=== PATIENT | male | born 1955 | race Caucasian/White ===

== ENCOUNTER 2024-01-19 07:50 | Emergency (ER) | payer OTHER ==
[2024-01-19] MEDS: Morphine 4 MG/ML Syringe IVPUSH ONE (07:57)
[2024-01-19] MEDS: Lactated Ringers 1,000 ML IV SCH (07:58)
[2024-01-19] MEDS: fentaNYL 100 MCG/2 ML SDV IVPUSH ONE ×4 (08:07→11:21)
[2024-01-19] MEDS: HYDROmorphone 2 MG/ML Syringe IVPUSH ONE (08:47)
[2024-01-19] MEDS: Diphtheria,Pertussis(Acell),Tetanus Vaccine 0.5 ML Syringe IM ONE (09:03)
[2024-01-19] MEDS: Naloxone 0.4 MG/ML SDV IVPUSH PRN (09:08)
[2024-01-19 09:11] LABS: BASOPHILS ABSOLUTE AUTO 0.07 K/uL (0.00-0.20); BASOPHILS PERCENT AUTO 0.4 % (0.0-1.0); EOSINOPHILS ABSOLUTE AUTO 0.09 K/uL (0.00-0.45); EOSINOPHILS PERCENT AUTO 0.6 % (0.0-6.0); HEMATOCRIT 42.5 % (42.0-52.0); HEMOGLOBIN 14.3 g/dL (14.0-18.0); IMMATURE GRAN ABSOLUTE AUTO 0.17 K/uL (0.00-0.05); IMMATURE GRAN PERCENT AUTO 1.1 % (0.0-0.4); LYMPHOCYTES ABSOLUTE AUTO 3.37 K/uL (1.00-4.80); LYMPHOCYTES PERCENT AUTO 21.1 % (24.0-44.0); MEAN CORPUSCULAR HEMOGLOBIN 33.1 pg (28.0-32.0); MEAN CORPUSCULAR HGB CONC 33.6 g/dL (32.0-36.0); MEAN CORPUSCULAR VOLUME 98.4 fL (83.0-99.0); MEAN PLATELET VOLUME 9.6 fL (9.4-12.4); MONOCYTES ABSOLUTE AUTO 1.24 K/uL (0.00-0.80); MONOCYTES PERCENT AUTO 7.8 % (0.0-8.0); NEUTROPHILS ABSOLUTE AUTO 11.04 K/uL (1.80-7.70); PLATELET COUNT,PLT 229 K/uL (150-400); RED BLOOD CELL COUNT 4.32 M/uL (4.52-5.90); WHITE BLOOD CELL COUNT,WBC 15.98 K/uL (3.9-11.3)
[2024-01-19] MEDS: Iopamidol 755 MG/ML 500 ML Multipack Bottle IVPUSH STA (09:17)
[2024-01-19] MEDS ORDERED: Naloxone 0.4 MG/ML SDV IVPUSH PRN (09:20)
[2024-01-19 09:39] LABS: INR 1.26 (0.86-1.11)
[2024-01-19 09:43] LABS: D-DIMER QUANTITATIVE > 35.20 mg/L FEU (0.00-0.50)
[2024-01-19 09:47] LABS: A/G RATIO 1.2 (0.9-1.6); ALANINE AMINOTRANSFERASE,ALT 74 IU/L (14-63); ALBUMIN 3.5 g/dL (3.4-5.0); ALKALINE PHOSPHATASE 70 U/L (46-116); ASPARTATE AMNIOTRANSFERASE,AST 145 IU/L (15-37); BILIRUBIN TOTAL 0.3 mg/dL (0.2-1.0); BLOOD UREA NITROGEN,BUN 15 mg/dL (7.0-18.0); CALCIUM 7.8 mg/dL (8.5-10.1); CARBON DIOXIDE,CO2 28.7 mmol/L (21.0-32.0); CHLORIDE,CL 94 mmol/L (98-107); ETHANOL BLOOD MEDICAL 91 mg/dL; GLUCOSE RANDOM 233 mg/dL (74-106); LIPASE 24 U/L (16-77); POTASSIUM,K 4.2 mmol/L (3.5-5.1); PROTEIN TOTAL,TP 6.5 g/dL (6.4-8.2); SODIUM,NA 129 mmol/L (136-148)
[2024-01-19] MEDS: HYDROmorphone 0.5 MG/0.5 ML Syringe IVPUSH ONE (09:58)
[2024-01-19 10:11] LABS: ESTIMATED GFR 83 mL/min (>60)
[2024-01-19] MEDS ORDERED: Ketamine 500 mg/10 ML MDV IV ONE (10:21)
[2024-01-19] MEDS: Etomidate 2 MG/ML 20 ML SDV IVPUSH ONE (10:24)
[2024-01-19] MEDS: Succinylcholine 200 MG/10 ML MDV IVPUSH ONE (10:26)
[2024-01-19] MEDS: fentaNYL/Normal Saline 2,500 MCG in Premix Bag 1 BAG IV PRN (10:35)
[2024-01-19] MEDS: Norepinephrine Bit/D5W Premix 250 ML IV SCH (10:40)
[2024-01-19] MEDS: Ketamine 500 MG in Sodium Chloride 0.9% 500 ML IV ONE (10:52)
[2024-01-19] MEDS: fentaNYL/Normal Saline 250 ML ONE (10:59)
[2024-01-19] MEDS: Norepinephrine Bit/D5W Premix 250 ML ONE (11:01)
[2024-01-19] MEDS: Lactated Ringers 500 ML IV ONE (11:02)
[2024-01-19] MEDS: Lactated Ringers 1,000 ML IV ONE ×2 (11:04→12:10)
[2024-01-19 11:07] LABS: BASE EXCESS ARTERIAL -9.7 (-2.0-3.0); BICARBONATE,ARTERIAL 21 mEq/L (22-26); PCO2 ARTERIAL 68 mmHG (35-45); PO2 ARTERIAL 66 mmHG (80-105)
[2024-01-19 11:10] LABS: APPEARANCE,URINE CLEAR; BILIRUBIN,URINE NEGATIVE (NEGATIVE); COLOR,URINE YELLOW; GLUCOSE,URINE NEGATIVE (NEGATIVE); KETONES,URINE NEGATIVE (NEGATIVE); LEUKOCYTE ESTERASE,URINE NEGATIVE (NEGATIVE); NITRITE,URINE NEGATIVE (NEGATIVE); OCCULT BLOOD,URINE LARGE (NEGATIVE); PH,URINE 5.5 (5.0-8.0); PROTEIN,URINE 30 mg/dL (NEGATIVE); UROBILINOGEN,URINE 0.2 EU/dL (<2.0)
[2024-01-19 11:19] LABS: BACTERIA,URINE FEW (NEGATIVE); EPITHELIAL CELLS,URINE FEW (NONE-FEW)
[2024-01-19 11:20] LABS: AMORPHOUS SEDIMENT,URINE LIGHT (NEGATIVE); AMPHETAMINES SCREEN, URINE NEGATIVE (CUTOFF=500); BARBITURATE SCREEN,URINE NEGATIVE (CUTOFF=200); BENZODIAZEPINES SCREEN,URINE NEGATIVE (CUTOFF=150); BUPRENORPHINE SCREEN,URINE NEGATIVE (CUTOFF=10); FINE GRANULAR CASTS,URINE 0-2 (NEGATIVE); METHADONE SCREEN, URINE NEGATIVE (CUTOFF=200); METHAMPHETAMINES SCREEN, URINE NEGATIVE (CUTOFF=500); OXYCODONE SCREEN,URINE NEGATIVE (CUT0FF=100); PCP SCREEN,URINE NEGATIVE (CUTOFF=25); THC SCREEN,URINE 20 NG/ML NEGATIVE (CUTOFF=50)
[2024-01-19] MEDS ORDERED: DOBUTamine/Dextrose 5%-Water 500 MG/250 ML BAG IV SCH (12:00)
[2024-01-19] MEDS: fentaNYL 100 MCG/2 ML SDV ONE (15:16)
== END 2024-01-19 12:30 | disposition other institution (70) ==
LOC: MW.ED 07:50
DX: S22.43XA Multiple fractures of ribs, bilateral, initial encounter for closed fracture (principal); S02.2XXA Fracture of nasal bones, initial encounter for closed fracture; S32.040A Wedge compression fracture of fourth lumbar vertebra, initial encounter for closed fracture; S27.322A Contusion of lung, bilateral, initial encounter; S26.91XA Contusion of heart, unspecified with or without hemopericardium, initial encounter; E83.51 Hypocalcemia; R73.9 Hyperglycemia, unspecified; E87.1 Hypo-osmolality and hyponatremia; R57.0 Cardiogenic shock; Z23 Encounter for immunization; V89.0XXA Person injured in unspecified motor-vehicle accident, nontraffic, initial encounter
CPT/HCPCS: 31500; 36415; 36600; 51702; 70450; 71045; 71260; 72125; 72170; 73130; 74177; 80053; 80305; 80307; 81001; 82803; 83690; 84484; 85025; 85379; 85610; 86850; 86900; 86901; 90471; 90715; 93005; 94660; 96361; 96365; 96366; 96368; 96375; 96376; 99291; 99292; G0390; J0330; J1171; J2270; J2310; J3010; J3490; J7040; J7120; Q9967; 93010; 99285